=== PATIENT | female | born 1935 | race Caucasian/White ===

== ENCOUNTER 2016-11-08 14:43 | Emergency (ER) | payer MEDICARE ==
--- NOTE | ~2016-11-08 | EKG ---
PATIENT: MIKA ENRIQUEZ UNIT #: [id number] Ventricular Rate: 88 BPM Atrial Rate: 88 BPM P-R Interval: 128 ms QRS Duration: 82 ms Q-T Interval: 402 ms QTC Calculation(Bezet): 486 ms P Calvin: 23 degrees Calculated R Calvin: -68 degrees Calculated T Calvin: 46 degrees Diagnosis Line: Normal sinus rhythm Diagnosis Line: Left axis deviation Diagnosis Line: Abnormal ECG Diagnosis Line: When compared with ECG of 04-NOV-2009 15:33, Diagnosis Line: QRS axis Shifted left Diagnosis Line: Confirmed by DIMITRI CORRAL MD ([id number]) on 11/08/2016 Diagnosis Line: 10:45:20 PM INTERPRETING MD: SHAYNA ALEXANDER
--- NOTE | ~2016-11-08 | CT4 ---
[facility] A Service of [facility] / [facility] RADIOLOGY TEXT RESULTS PATIENT: MIKA ENRIQUEZ LOCATION: [facility] : 39 UNIT #: [id number] AGE: [address]: Tono Manjarrez MD SEX: F ORDER DR: [id number] [facility] [address] [place], [place] [address] [id number] MR#: [id number] Acc #: [id number] NAME: MIKA ENRIQUEZ : 1935 SEX: F STUDY DATE/TIME: 11/08/2016 15:21 UNIT: [facility] ROOM: STUDY DESCRIPTION: CT Abd and Pelv Wo Cont Attending Physician: Tono Manjarrez M.D. Ordering Physician: Tono Manjarrez M.D. Primary Care Physician: Reyna Young M.D. MEDICAL IMAGING REPORT This report is preliminary unless electronic signature is present EXAM CT abdomen and pelvis without contrast 11/08/2016 HISTORY Upper abdomen pain since Sunday. Nausea and vomiting. TECHNIQUE Axial 5 mm images were obtained through the abdomen and pelvis without IV or oral contrast. This CT exam was performed with one or more of the following radiation dose reduction techniques: automatic exposure control, adjustment of mA and/or kV according to patient size, and iterative reconstruction. FINDINGS The gallbladder has been removed. The liver, spleen, pancreas, adrenal glands and kidneys are normal in appearance. The aorta is normal in size and there is no adenopathy. The patient was actually given some oral contrast. The bowel appears normal. The appendix appears normal. The uterus has been removed and there are no adnexal masses. The bones show degenerative change in the lumbar spine. IMPRESSION 1. Prior cholecystectomy and hysterectomy. 2. Normal appendix. 3. No bowel inflammation is identified. Dictated by... Son Saul M.D. THIS IS AN ELECTRONICALLY VERIFIED REPORT Son Saul M.D. at 11/09/2016 7:17 AM [facility] A Service of [facility] / [facility] RADIOLOGY TEXT RESULTS PATIENT: MIKA ENRIQUEZ LOCATION: [facility] #: [id number] : 39 UNIT #: [id number] AGE: [address]: Tono Manjarrez MD SEX: F ORDER DR: Satish TD: 11/08/2016 16:54 JOB #: [id number] MEDICAL IMAGING REPORT Page 1 of 1 COPY
[2016-11-08 13:44] LABS: BASOPHIL# 0.1 X10e3 (0-0.3); BASOPHIL% 0.8 % (0-2.5); EOSINOPHIL# 0.1 X10e3 (0-0.7); HEMATOCRIT 42.6 % (35.0-45.0); HEMOGLOBIN 14.5 gm/dL (12.0-16.0); LYMPHOCYTE# 0.9 X10e3 (1.0-3.5); LYMPHOCYTE% 12.7 % (17.0-45.0); MEAN CORPUSCULAR HEMOGLOBIN 28.6 PG (28-34); MEAN CORPUSCULAR HGB CONC 34.1 g/dL (30-36); MEAN PLATELET VOLUME 6.5 FL (6.5-11.5); MONOCYTE# 0.3 X10e3 (0-1.0); NEUTROPHIL% 81.5 % (40-75); PLATELET COUNT 271 X10e3 (140-420); RED BLOOD COUNT 5.07 X10e (3.90-5.30); RED CELL DISTRIBUTION WIDTH 12.8 % (11.0-15.5); WHITE BLOOD COUNT 7.3 X10e3 (4.0-10.5)
[2016-11-08 13:45] LABS: DIFF IND NO
[2016-11-08 13:59] LABS: POC - CKMB 1.5 ng/mL (0.0-7.9); POC - TROPONIN <0.05 ng/mL (<=0.05)
[2016-11-08 14:12] LABS: ALBUMIN SERUM 4.5 g/dL (3.5-5.0); BILIRUBIN, DIRECT 0.1 mg/dL (0.0-0.2); BILIRUBIN,INDIRECT 0.7 mg/dL (0.0-0.9); BILIRUBIN,TOTAL 0.8 mg/dL (0.2-2.0); BUN/CREATININE RATIO 10.9; CREATININE SERUM 1.1 mg/dL (0.6-1.4); GLOM FILT RATE Estimated 47.7 mL/min (>60); POTASSIUM 3.9 mmol/L (3.5-5.1); PROTEIN TOTAL SERUM 7.7 g/dL (6.0-8.3)
[~2016-11-08 14:43] MED LIST: ACTOS; AMARYL PO; LISINOPRIL PO; LORTAB 7.5-5001 TAB PO; MEVACOR; PAXIL PO; PHENERGAN25 MG PO; PRILOSEC PO; SIMVASTATIN40 MG PO
[2016-11-08 15:10] LABS: URINE SOURCE CLEAN CATCH
[2016-11-08 15:16] LABS: URINE BILIRUBIN NEG (NEG); URINE BLOOD NEG (NEG); URINE COLOR YELLOW; URINE GLUCOSE 100 MG/DL (NEG); URINE KETONE TRACE (NEG); URINE LEUKOCYTE ESTERASE NEG (NEG); URINE NITRATE NEG (NEG); URINE PH 6.5 (5-8); URINE PROTEIN NEG (NEG); URINE SPECIFIC GRAVITY 1.011 (1.003-1.035); URINE UROBILINOGEN 0.2 MG/DL (NEG)
[2016-11-08 15:19] LABS: CULTURE INDICATED? NO; URINE APPEARANCE CLEAR
[2016-11-09] MEDS ORDERED: LIPITOR20 MG PO (14:47)
[2016-11-09] MEDS ORDERED: PHENERGAN25 MG PO (14:48)
[2016-11-09] MEDS ORDERED: CIPRO PO (14:48)
[2016-11-09] MEDS ORDERED: JANUVIA PO (14:48)
[2016-11-09] MEDS ORDERED: MOTION SICKNESS25 M4 PO (14:49)
== END 2016-11-08 16:12 | disposition home or self-care (01) ==
LOC: CED 14:43
PROVIDERS: Emergency Medicine
DX: R42 Dizziness and giddiness (principal); R20.9 Unspecified disturbances of skin sensation; R11.0 Nausea; E11.65 Type 2 diabetes mellitus with hyperglycemia; I10 Essential (primary) hypertension; Z90.710 Acquired absence of both cervix and uterus; Z90.49 Acquired absence of other specified parts of digestive tract; Z88.0 Allergy status to penicillin; Z79.899 Other long term (current) drug therapy
CPT/HCPCS: 36415; 74176; 80048; 80076; 81003; 82553; 82565; 82947; 84484; 85025; 93005; 96361; 96374; 99284; J2405

== ENCOUNTER → 2016-11-10 | Day surgery (SDC) | payer MEDICARE ==
[~2016-11-10] MED LIST changes: +CIPRO PO; +JANUVIA PO; +LIPITOR20 MG PO; +MOTION SICKNESS25 M4 PO
--- NOTE | ~2016-11-10 | OR ---
Unit #: [id number] #: [id number] Patient: MIKA ENRIQUEZ [id number] [address] [place], [place] [address] [id number] O MR#: [id number] NAME: MIKA ENRIQUEZ ROOM: Date of Procedure: 11/10/2016 Admission Date: 11/10/2016 Surgeon: Ashutosh Sánchez Jr., M.D. : 1935 Attending Physician: Ashutosh Sánchez Jr., M.D. Primary Care Physician: Reyna Young M.D. OPERATIVE REPORT INDICATIONS FOR PROCEDURE The patient is a 81-year-old white female, who recently presented to the office complaining of an episode of rectal bleeding approximately a month ago. She has also had some significant nausea. It was felt she needed both upper and lower endoscopy and she is brought in this time for these procedures. She has had her prep at home. She understands the procedures including the risks, including that of bleeding, perforation, and consents. PREOPERATIVE DIAGNOSES Possible occult ulcer disease, possible colitis with rectal bleeding. POSTOPERATIVE DIAGNOSES On upper endoscopy, the patient was noted to have mild erosive gastritis with numerous polyps of the proximal stomach, which were biopsied and she was also noted to have evidence of some diverticulosis of the left colon. Otherwise, no other abnormalities on colonoscopy except for internal hemorrhoids. ANESTHESIA MAC anesthesia. PROCEDURES PERFORMED Flexible fiberoptic esophagogastroduodenoscopy with antral biopsy for Helicobacter pylori and biopsies of fundic polyps for pathology and flexible colonoscopy to the cecum. DESCRIPTION OF PROCEDURE The patient was positioned in Almendarez position with left side down. After being given MAC anesthesia, the Olympus XQ scope was passed in the proximal esophagus. The entire esophagus was examined. There was no evidence of any esophagitis and no evidence of any stenosis. The scope was advanced through the GE junction and the cardia on down to the fundic and antral region of the stomach and retroflexed back up to the area of the cardia, there was a small hiatal hernia present. The stomach distended well without evidence of rigidity. There was no evidence of any gastric ulcer disease. There was some distal gastric changes compatible with mild gastritis, which was erosive. A biopsy was taken from the antrum for Helicobacter pylori without significant bleeding and there were numerous fundic polyps and these all appeared benign. Several were biopsied for pathology without bleeding. The scope was then advanced down the prepyloric region through the pylorus and the duodenal bulb and down to the second portion of the duodenum. The entire duodenal portion Unit #: [id number] #: [id number] Patient: MIKA ENRIQUEZ examination was within normal limits. The scope was slowly removed. The patient repositioned for colonoscopy. Digital rectal examination was performed, which revealed no palpable mass or tenderness. No blood or stool within the rectal ampulla. The Olympus colonoscope was advanced through the anal canal up the rectum and retroflexed down to the area of the anorectal region. There were several dilated internal hemorrhoids, which were not actively bleeding today. The scope was then straightened and advanced up in the rectosigmoid, in the sigmoid and descending colon areas, around the splenic flexure and the transverse colon, around hepatic flexure and ascending colon, down in the area of the cecum. The light from the tip of the scope could be seen transilluminating through right lower quadrant abdominal wall area. Multiple attempts advancing the scope up the distal ileum were unsuccessful. The scope was slowly removed. There were no tumors, polyps, cancer, or AVMs. No evidence of any colitis or acute diverticulitis. The caliber of the colon appeared normal throughout except for noting a few diverticula and some internal hemorrhoids. There were no other abnormalities. The scope was removed. The patient tolerated the procedure well and was discharged in satisfactory condition. Dictated by... Ashutosh Sánchez Jr., M.D. JMB/zachery TD: 11/10/2016 23:01 JOB #: [id number] OPERATIVE REPORT Page 1 of 1 X Ashutosh Sánchez MD X PROCEDURE OPERATIVE NOTE
[2016-11-10 13:09] LABS: BASOPHIL# 0.1 X10e3 (0-0.3); BASOPHIL% 1.1 % (0-2.5); EOSINOPHIL# 0.3 X10e3 (0-0.7); EOSINOPHIL% 3.4 % (0.0-7.0); HEMATOCRIT 42.6 % (35.0-45.0); HEMOGLOBIN 14.5 gm/dL (12.0-16.0); LYMPHOCYTE# 1.9 X10e3 (1.0-3.5); LYMPHOCYTE% 23.2 % (17.0-45.0); MEAN CELL VOLUME 85.1 FL (83-96); MEAN CORPUSCULAR HGB CONC 34.1 g/dL (30-36); MEAN PLATELET VOLUME 6.5 FL (6.5-11.5); MONOCYTE# 0.4 X10e3 (0-1.0); MONOCYTE% 4.7 % (3.0-12.0); NEUTROPHIL# 5.4 X10e3 (1.5-7.1); NEUTROPHIL% 67.6 % (40-75); PLATELET COUNT 277 X10e3 (140-420); RED BLOOD COUNT 5.01 X10e (3.90-5.30); RED CELL DISTRIBUTION WIDTH 12.9 % (11.0-15.5)
[2016-11-10 13:12] LABS: DIFF IND NO
[2016-11-10 13:34] LABS: ALBUMIN SERUM 4.4 g/dL (3.5-5.0); BILIRUBIN,TOTAL 0.9 mg/dL (0.2-2.0); CALCIUM SERUM 9.6 mg/dL (8.4-10.2); GLOM FILT RATE Estimated 53.6 mL/min (>60); POTASSIUM 3.5 mmol/L (3.5-5.1); PROTEIN TOTAL SERUM 7.3 g/dL (6.0-8.3)
== END | disposition home or self-care (01) ==
LOC: COPS 12:41
PROVIDERS: Surgery
DX: K31.7 Polyp of stomach and duodenum (principal); K29.00 Acute gastritis without bleeding; K57.30 Diverticulosis of large intestine without perforation or abscess without bleeding; K64.8 Other hemorrhoids; I10 Essential (primary) hypertension; E78.5 Hyperlipidemia, unspecified; E11.9 Type 2 diabetes mellitus without complications; K21.9 Gastro-esophageal reflux disease without esophagitis; Z88.1 Allergy status to other antibiotic agents; Z79.2 Long term (current) use of antibiotics; Z79.899 Other long term (current) drug therapy; Z90.49 Acquired absence of other specified parts of digestive tract; Z90.710 Acquired absence of both cervix and uterus; Z98.890 Other specified postprocedural states
CPT/HCPCS: 80053; 82947; 85025; 87077; 88305; 88312